=== PATIENT | female | born 1990 | race Caucasian/White ===

== ENCOUNTER 2017-12-07 16:39 | Emergency (ER) | payer BC ==
--- NOTE | 2017-12-07 17:42 | ER Document Report ---
ED GI/ - General Chief Complaint: Vaginal Discharge Stated Complaint: VAGINAL ODOR, DISCHARGE Time Seen by Provider: 12/07/17 17:22 Mode of Arrival: Ambulatory Information source: Patient Notes: Patient is a 27-year-old female who presents with chief complaint of abnormal vaginal discharge. Patient reports that she had a vaginal delivery approximately 5 weeks ago. Patient reports that her bleeding had subsided when 3 weeks ago she began having a foul-smelling stringy discharge. Patient reports that she thought this would improve over time however she reports that it is only worsening. Patient denies any fevers. Patient denies resuming sexual activity. Patient denies any abdominal or pelvic pain. TRAVEL OUTSIDE OF THE [place] IN LAST 30 DAYS: No - Related Data Allergies/Adverse Reactions: No Known Allergies Allergy (Verified 12/07/17 16:41) Past Medical History - General Information source: Patient - Social History Smoking Status: Never Smoker Family History: Reviewed & Not Pertinent - Medical History Medical History: Negative Surgical Hx: Negative - Immunizations Immunizations up to date: Yes Hx Diphtheria, Pertussis, Tetanus Vaccination: Yes Review of Systems - Review of Systems Constitutional: No symptoms reported EENT: No symptoms reported Cardiovascular: No symptoms reported Respiratory: No symptoms reported Gastrointestinal: No symptoms reported Genitourinary: No symptoms reported Female Genitourinary: See HPI Musculoskeletal: No symptoms reported Skin: No symptoms reported Hematologic/Lymphatic: No symptoms reported Neurological/Psychological: No symptoms reported Physical Exam - Vital signs Vitals: Temp Pulse Resp BP Pulse Ox 98.1 F 73 16 132/78 H 98 12/07/17 16:44 12/07/17 16:44 12/07/17 16:44 12/07/17 16:44 12/07/17 16:44 - Notes Notes: PHYSICAL EXAMINATION: GENERAL: Well-appearing, well-nourished and in no acute distress. HEAD: Atraumatic, normocephalic. EYES: Pupils equal round and reactive to light, extraocular movements intact, conjunctiva are normal. ENT: Nares patent, oropharynx clear without exudates. Moist mucous membranes. NECK: Normal range of motion, supple without lymphadenopathy LUNGS: Breath sounds clear to auscultation bilaterally and equal. No wheezes rales or rhonchi. HEART: Regular rate and rhythm without murmurs ABDOMEN: Soft, nontender, nondistended abdomen. No guarding, no rebound. No masses appreciated. Female : Speculum exam performed, small amount of white discharge near the cervical loss, no abnormal odor detected, no cervical motion tenderness, no adnexal tenderness. Musculoskeletal: Normal range of motion, no pitting or edema. No cyanosis. NEUROLOGICAL: Cranial nerves grossly intact. Normal speech, normal gait. Normal sensory, motor exams PSYCH: Normal mood, normal affect. SKIN: Warm, Dry, normal turgor, no rashes or lesions noted. Course - Re-evaluation Re-evalutation: Patient is alert, oriented and nontoxic in appearance and in no acute distress. Patient tolerated speculum exam without difficulty. Urine will be sent for urinalysis, wet mount and GC chlamydia ordered, collected and sent. Patient was also be sent for transvaginal ultrasound to rule out any retained products of conception. Transvaginal ultrasound was negative for any acute findings. Both wet mount and GC chlamydia are also unremarkable. Urinalysis does show small leukocyte esterase however patient does not have any symptoms of urinary tract infection. Will send urine for culture and call patient if results are abnormal. Patient is agreeable to this plan. Patient will be discharged home at this time in stable condition, copies of all labs and ultrasound are provided to patient is patient's [facility]E [facility] is in [place] and she has a follow-up appointment with them this Monday. - Vital Signs Vital signs: Temp Pulse Resp BP Pulse Ox 98.1 F 73 16 132/78 H 98 12/07/17 16:44 12/07/17 16:44 12/07/17 16:44 12/07/17 16:44 12/07/17 16:44 - Laboratory Laboratory results interpreted by me: 12/07/17 17:50 Urine Ketones 20 H Urine Blood SMALL H Ur Leukocyte Esterase LARGE H Urine Ascorbic Acid 40 H Discharge - Discharge Clinical Impression: Vaginal discharge Condition: Stable Disposition: HOME, SELF-CARE Additional Instructions: Your workup today was normal. I have sent your urine down for a urine culture, we will call you if there is anything abnormal on this. I believe the discharge you are experiencing is normal discharge. Please keep your follow-up appointment with your [facility] as previously scheduled.
[2017-12-07 17:52] LABS: RBCS (WET MOUNT) NO RBCS SEEN; T.VAGINALIS (WET MOUNT) NO TRICHOMONAS SEEN; WBCS (WET MOUNT) 1+ WBCS SEEN; YEAST (WET MOUNT) NO YEAST SEEN
[2017-12-07 18:39] LABS: APPEARANCE,URINE CLOUDY; BILIRUBIN,URINE NEGATIVE (NEGATIVE); COLOR,URINE YELLOW; GLUCOSE, URINE NEGATIVE (NEGATIVE); KETONES,URINE 20 mg/dL (NEGATIVE); LEUKOCYTE ESTERASE,URINE LARGE (NEGATIVE); NITRITE,URINE NEGATIVE (NEGATIVE); PROTEIN,URINE NEGATIVE (NEGATIVE); URINE SPECIFIC GRAVITY 1.017; UROBILINOGEN,URINE NEGATIVE mg/dL (<2.0)
--- NOTE | 2017-12-07 18:58 | RADIOLOGY REPORT (SQ) ---
EXAM DESCRIPTION: U/S NON OB PEL TV W/DOPPLER COMPLETED DATE/TIME: 12/07/2017 6:36 pm REASON FOR STUDY: eval for retained POC COMPARISON: None. TECHNIQUE: Dynamic and static grayscale images acquired of the pelvis via transvaginal approach and recorded on PACS. Additional selected color Doppler and spectral images recorded. LIMITATIONS: None. FINDINGS: UTERUS: Contour normal. No mass. ENDOMETRIAL STRIPE: No focal or generalized thickening. No masses. No evidence of retained products of conception. CERVIX: 2.7 cm. There is a nabothian cyst. RIGHT OVARY AND DOPPLER: Normal size. No worrisome masses. Normal arterial vascular flow without evid ence for torsion. LEFT OVARY AND DOPPLER: Normal size. No worrisome masses. Normal arterial vascular flow without evide nce for torsion. FREE FLUID: None noted. OTHER: No other significant finding. MEASUREMENTS: UTERUS: 9.1 x 4.7 x 5.7 cm. ENDOMETRIAL STRIPE: 2 mm. RIGHT OVARY: 2.4 x 2 x 1.7 cm. LEFT OVARY: 2.4 x 2.3 x 2.1 cm. IMPRESSION: NORMAL TRANSVAGINAL PELVIC ULTRASOUND. TECHNICAL DOCUMENTATION: JOB ID: [id number] [employer]- All Rights Reserved Rev Reading location - IP/workstation name: [email or web address]
[2017-12-07 19:24] VITALS: BP 132/78
== END 2017-12-07 19:24 | disposition home or self-care (01) ==
LOC: ER 16:39
DX: N89.8 Other specified noninflammatory disorders of vagina (principal)
CPT/HCPCS: 76830; 81001; 87086; 87210; 93976; 99284